=== PATIENT | female | born 1985 | race Caucasian/White ===

== ENCOUNTER 2017-10-03 16:24 | Emergency (ER) ==
[2017-10-03 16:31] VITALS: BP 144/78; TEMP 99.8; BMI 31.4
--- NOTE | 2017-10-03 17:09 | ED.PDOC ---
General ED Provider: Dr. MINERVA CAMACHO Chief Complaint: Fever Stated Complaint: Sinus infection associated with repeated episodes of emesis since last evening when started on antibiotic amoxicilln. Time Seen by Physician: 16:30 Mode of Arrival: Walk-In Information Source: Patient Exam Limitations: No limitations Primary Care Provider: AMY VARGAS Seen Within Last 72 Hours for Same Complaint By: PCP Nursing and Triage Documentation Reviewed and Agree: Yes Reviewed sepsis parameters & appropriate labs ordered?: Yes System Inflammatory Response Syndrome: Not Applicable Sepsis Protocol: For patient's 13 years and over: Temp is 96.8 and below OR 101 and greater Pulse >90 BPM Resp >20/minute Acutely Altered Mental Status Are patient's symptoms suggestive of a new infection, such as: -Pneumonia -Skin, Soft Tissue -Endocarditis -UTI -Bone, Joint Infection -Implantable Device -Acute Abdominal Infection -Wound Infection -Meningitis -Blood Stream Catheter Infection -Unknown System Inflammatory Response Syndrome: Not Applicable Respiratory Complaint Exam - Respiratory Complaint/Exam Symptoms Are: Still present Timing: Intermittent Initial Severity: Moderate Current Severity: Mild Location: Throat Character: Reports: Productive cough Alleviating: Reports: None Associated Signs and Symptoms: Reports: Nasal congestion, Decreased oral intake , Increased thirst Related Surgical History: Reports: None Pulmonary Embolism Risk Factors: None Cardiac Risk Factors: Reports: None Pseudomonas Risk Factors: Reports: None Tuberculosis Risk Factors: Reports: None Status Asthmaticus Risk Factors: Reports: None Home Oxygen Use: Yes Recent Stress Test: No Recent Echo/LV Function: No Current Antibiotic Use: No Current Asthma Medication Use: No Respiratory Distress: None Inadequate Respiratory Effort: No Dysphagia Present: No Stridor Present: No JVD Present: No Accessory Muscle Use: No Retractions: Not Present Diminished Breath Sounds: No Sinus Tenderness: Maxillary Grunting Respirations: No Kussmaul Respirations: No Differential Diagnoses: Sinusitis, Influenza, Other (vomiting) Review of Systems - Review Of Systems Constitutional: Reports: Fever, Weakness Eyes: Reports: No symptoms Ears, Nose, Mouth, Throat: Reports: Nose discharge Respiratory: Reports: Cough Cardiac: Reports: No symptoms GI: Reports: Nausea, Poor appetite, Poor fluid intake, Vomiting : Reports: No symptoms Musculoskeletal: Reports: No symptoms Skin: Reports: No symptoms Neurological: Reports: No symptoms All Other Systems: Reviewed and Negative Past Medical History - Past Medical History Previously Healthy: Yes Endocrine: Reports: None Cardiovascular: Reports: None Respiratory: Reports: None Hematological: Reports: None Gastrointestinal: Reports: None Genitourinary: Reports: None Neuro/Psych: Reports: None Musculoskeletal: Reports: Joint Pain Cancer: Reports: None Last Menstrual Period: 1 month ago - Surgical History General Surgical History: Reports: Cholecystectomy - Family History Family History: Reports: Unknown - Social History Smoking Status: Current every day smoker, Light tobacco smoker Hx Substance Use: No Alcohol Screening: None Physical Exam - Physical Exam Appearance: Well-appearing Ill-appearing: Mild Eyes: [place], EOMI, Conjunctiva clear ENT: Ears normal, Nose normal, Oropharynx normal Neck: Supple Respiratory: Airway patent Cardiovascular: RRR GI/: Soft, Nontender, No masses, Bowel sounds normal, No Organomegaly Musculoskeletal: Normal strength Skin: Warm Neurological: Sensation intact, Alert, Oriented Psychiatric: Affect appropriate, Mood appropriate Critical Care Note - Critical Care Note Total Time (mins): 0 Course - Course Hematology/Chemistry: 10/03/17 17:20 10/03/17 17:20 Orders, Labs, Meds: Lab Review 10/03/17 10/03/17 10/03/17 16:40 17:15 17:15 WBC RBC Hgb Hct MCV MCH MCHC RDW Coeff of Shaggy Plt Count Immature Gran % (Auto) Neut % (Auto) Lymph % (Auto) Angelina % (Auto) Eos % (Auto) Baso % (Auto) Immature Gran # (Auto) Neut # Lymph # Angelina # Eos # Baso # Sodium Potassium Chloride Carbon Dioxide Anion Gap BUN Creatinine Estimated GFR (MDRD) BUN/Creatinine Ratio Glucose Calcium Total Bilirubin AST ALT Alkaline Phosphatase Total Protein Albumin Globulin Albumin/Globulin Ratio Urine Color Yellow Urine Clarity Clear Urine pH 8.5 Ur Specific [place] 1.015 Urine Protein Negative Urine Glucose (UA) Negative Urine Ketones Negative Urine Blood Negative Urine Nitrite Negative Urine Bilirubin Negative Urine Urobilinogen 0.2 Ur Leukocyte Esterase Negative Urine Test Negative Influenza A (Rapid) Negative by naat Influenza B (Rapid) Negative by naat 10/03/17 10/03/17 17:20 17:20 WBC 7.70 RBC 4.27 Hgb 12.3 Hct 36.6 L MCV 85.7 MCH 28.8 MCHC 33.6 RDW Coeff of Shaggy 15.0 H Plt Count 202 Immature Gran % (Auto) 0.3 Neut % (Auto) 48.2 Lymph % (Auto) 37.7 Angelina % (Auto) 8.4 Eos % (Auto) 4.2 Baso % (Auto) 1.2 Immature Gran # (Auto) 0.0 Neut # 3.7 Lymph # 2.9 Angelina # 0.7 Eos # 0.3 Baso # 0.1 Sodium 141 Potassium 3.8 Chloride 110 H Carbon Dioxide 25 Anion Gap 9.8 BUN 7 Creatinine 0.71 Estimated GFR (MDRD) 96.00 BUN/Creatinine Ratio 9.85 Glucose 83 Calcium 9.0 Total Bilirubin 0.3 AST 15 ALT 9 L Alkaline Phosphatase 55 Total Protein 6.5 Albumin 3.5 Globulin 3.0 Albumin/Globulin Ratio 1.17 Urine Color Urine Clarity Urine pH Ur Specific [place] Urine Protein Urine Glucose (UA) Urine Ketones Urine Blood Urine Nitrite Urine Bilirubin Urine Urobilinogen Ur Leukocyte Esterase Urine Test Influenza A (Rapid) Influenza B (Rapid) Orders Category Date Time Status CLEAR LIQUID DIET DIETARY 10/03/17 Dinner Ordered CBC W/ AUTO DIFF Stat LAB 10/03/17 17:20 Completed CMP [COMPREHENSIVE METABOLIC PANEL] Stat LAB 10/03/17 17:20 Completed FLU A & B MOLECULAR [FLU A/B MOLECULAR] Stat LAB 10/03/17 16:40 Completed MOLECULAR GROUP A STREP Stat LAB 10/03/17 16:40 Completed URINALYSIS C & S IF INDICATED Stat LAB 10/03/17 17:15 Completed URINE Stat LAB 10/03/17 17:15 Completed Vital Signs: Temp Pulse Resp BP Pulse Ox 10/03/17 16:25 99.8 F H 76 16 144/78 H 97 Departure - Departure Discharge Problem: Sinusitis, Emesis Instructions: Sinusitis (ED), Acute Nausea and Vomiting (ED) Condition: Good Pt referred to PMD for follow-up: Yes (1 week) Prescriptions: Ondansetron [Zofran Odt] 4 mg PO Q8H #7 tab.rapdis Allergies/Adverse Reactions: Allergies No Known Drug Allergies Adverse Reaction (Verified 10/03/17 16:32) Home Medications: Ambulatory Orders Amoxicillin 500 mg PO TID 10/03/17 Ondansetron [Zofran Odt] 4 mg PO Q8H #7 tab.rapdis 10/03/17 Disposition Discussed With: Patient, Family
[2017-10-03] MEDS ORDERED: TYLENOL PO STA (18:40)
== END 2017-10-03 19:05 | disposition home or self-care (01) ==
LOC: ED 16:24
DX: J32.9 Chronic sinusitis, unspecified (principal); R11.10 Vomiting, unspecified; F17.210 Nicotine dependence, cigarettes, uncomplicated
CPT/HCPCS: 36415; 80053; 81001; 81025; 85025; 87502; 87651; 99283

== ENCOUNTER 2018-10-30 13:31 | Emergency (ER) | payer OTHER ==
[2018-10-30 13:41] VITALS: BP 140/81; TEMP 98.2; BMI 30.4
--- NOTE | 2018-10-30 15:57 | ED.PDOC ---
General ED Provider: Dr. MINERVA CAMACHO Chief Complaint: Rash Stated Complaint: Rash. Itchy red spots to left thigh x 4 or 5 days. Sawe ELIERD, Amy Vargas yesterday. Giventriacinolone cream et Prednisone 20 mg po dly. States is not working yet. States triamcinolone cream [place] and makes the rash worse. Has not informed Amy Vargas. Time Seen by Physician: 15:45 Mode of Arrival: Walk-In Information Source: Patient Exam Limitations: No limitations Primary Care Provider: AMY VARGAS Nursing and Triage Documentation Reviewed and Agree: Yes Does patient meet sepsis criteria?: No System Inflammatory Response Syndrome: Not Applicable Sepsis Protocol: For patient's 13 years and over: Temp is 96.8 and below OR 101 and greater Pulse >90 BPM Resp >20/minute Acutely Altered Mental Status Are patient's symptoms suggestive of a new infection, such as: -Pneumonia -Skin, Soft Tissue -Endocarditis -UTI -Bone, Joint Infection -Implantable Device -Acute Abdominal Infection -Wound Infection -Meningitis -Blood Stream Catheter Infection -Unknown Skin Complaint Exam - Skin Rash/Itching Complaint/Exam Symptoms Are: Still present Initial Severity: Moderate Current Severity: Severe Location: lt thigh and knee Potential Exposures: Reports: Unknown Prior Treatment: Benadryl , cream and steroids Aggravating: Reports: Showering, Heat, Clothing Alleviating: Reports: None Associated Signs and Symptoms: Denies: Difficulty breathing, Fever, Chills Related History: Similar episode Skin Findings: Present: Purpura (from itching in multiple locations lt lat thigh , scaling lesion, superficial vascular sites) Differential Diagnoses: Allergic Reaction, Other (neurodermatitis) Review of Systems - Review Of Systems Constitutional: Reports: No symptoms Eyes: Reports: No symptoms Ears, Nose, Mouth, Throat: Reports: No symptoms Respiratory: Reports: No symptoms Cardiac: Reports: No symptoms GI: Reports: No symptoms : Reports: No symptoms Musculoskeletal: Reports: No symptoms Skin: Reports: Rash (minimal lt thigh and popiteal region ), Other (itching) Neurological: Reports: Anxiety. Denies: Emotional problems, Cognitive dysfunction, Numbness, Tonic-Clonic seizures, Unable to move lower ext Endocrine: Reports: No symptoms Hematologic/Lymphatic: Reports: No symptoms All Other Systems: Reviewed and Negative Past Medical History - Past Medical History Previously Healthy: Yes Endocrine: Reports: None Cardiovascular: Reports: None Respiratory: Reports: None Hematological: Reports: None Gastrointestinal: Reports: None Genitourinary: Reports: None Neuro/Psych: Reports: None Musculoskeletal: Reports: Joint Pain Cancer: Reports: None Last Menstrual Period: 10/20/18 - Surgical History General Surgical History: Reports: Cholecystectomy - Family History Family History: Reports: Unknown - Social History Smoking Status: Current some day smoker, Light tobacco smoker Hx Substance Use: No Alcohol Screening: Occasionally Physical Exam - Physical Exam Appearance: Well-appearing (but anxious in appearance) Ill-appearing: None Pain Distress: None Eyes: [place], EOMI, Conjunctiva clear ENT: Ears normal, Nose normal, Oropharynx normal Neck: Supple Respiratory: Airway patent, Breath sounds clear, Breath sounds equal, Respirations nonlabored Cardiovascular: RRR, Pulses normal, No rub, No murmur GI/: Soft, Nontender, No masses, Bowel sounds normal, No Organomegaly Musculoskeletal: Normal strength, ROM intact, No edema, No calf tenderness Skin: Warm, Dry, Normal color Neurological: Sensation intact, Motor intact, Reflexes intact, Cranial nerves intact, Alert, Oriented Psychiatric: Affect appropriate, Mood appropriate Re-Evaluation - Re-Evaluation Time of Re-Evaluation: 17:50 Status: Improved Vital Signs Stable: Yes Appearance: NAD Lungs: Clear Skin: Warm and Dry Neuro: Alert and Oriented X3 CV: RRR Additional Comments: Feels much better Critical Care Note - Critical Care Note Total Time (mins): 30 Course - Course Hematology/Chemistry: 10/30/18 16:23 10/30/18 16:23 Orders, Labs, Meds: Lab Review 10/30/18 10/30/18 16:23 16:23 WBC 12.75 H RBC 4.58 Hgb 13.1 Hct 40.0 MCV 87.3 MCH 28.6 MCHC 32.8 RDW Coeff of Shaggy 14.2 Plt Count 259 Immature Gran % (Auto) 0.2 Neut % (Auto) 80.1 Lymph % (Auto) 16.0 [place] % (Auto) 3.5 Eos % (Auto) 0.0 Baso % (Auto) 0.2 Immature Gran # (Auto) 0.0 Neut # (Auto) 10.2 H Lymph # (Auto) 2.0 [place] # (Auto) 0.5 Eos # (Auto) 0.0 Baso # (Auto) 0.0 ESR 7 Sodium 139.0 Potassium 4.35 Chloride 102.1 Carbon Dioxide 27.0 Anion Gap 14.25 BUN 10.2 Creatinine 0.57 L Estimated GFR (MDRD) 123.00 BUN/Creatinine Ratio 17.89 Glucose 123.8 H Calcium 9.63 Total Bilirubin 0.39 AST 20.3 ALT 15.0 Alkaline Phosphatase 62.9 Total Protein 7.93 Albumin 4.71 Globulin 3.22 Albumin/Globulin Ratio 1.46 Orders Category Date Time Status CBC W/ AUTO DIFF Stat LAB 10/30/18 16:23 Completed CMP [COMPREHENSIVE METABOLIC PANEL] Stat LAB 10/30/18 16:23 Completed ESR Stat LAB 10/30/18 16:23 Completed UA [URINALYSIS C & S IF INDICATED] Stat LAB 10/30/18 16:14 Uncollected Cyproheptadine HCl [Periactin] MEDS 10/30/18 16:10 Discontinued 4 mg PO ONCE STA Hydroxyzine HCl [Vistaril Inj] MEDS 10/30/18 16:09 Discontinued 25 mg IM ONCE STA Medications Discontinued Medications Generic Name Dose Route Start Last Admin Trade Name Robert PRN Reason Stop Dose Admin Cyproheptadine HCl 4 mg 10/30/18 16:10 10/30/18 16:24 Periactin PO 10/30/18 16:11 Not Given ONCE STA Hydroxyzine HCl 25 mg 10/30/18 16:09 10/30/18 16:24 Vistaril Inj IM 10/30/18 16:10 25 mg ONCE STA Administration Vital Signs: Temp Pulse Resp BP Pulse Ox 10/30/18 13:32 98.2 F 87 20 140/81 98 Departure - Departure Time of Disposition: 17:20 Disposition: HOME SELF-CARE Discharge Problem: Pruritic condition, Stress at work Instructions: Itchy Skin (ED) Condition: Good Pt referred to PMD for follow-up: Yes IPMP verified?: No Additional Instructions: Cool baths wash clothing in hypoallergenic solution(dreft) Take meds as directed Prescriptions: Hydroxyzine HCl [Atarax] 25 mg PO QID #20 tablet Allergies/Adverse Reactions: Allergies No Known Drug Allergies Adverse Reaction (Verified 10/30/18 13:40) Home Medications: Ambulatory Orders Hydroxyzine HCl [Atarax] 25 mg PO QID #20 tablet 10/30/18 Disposition Discussed With: Patient, Family
[2018-10-30] MEDS: PERIACTIN PO STA (16:24)
[2018-10-30] MEDS: VISTARIL INJ IM STA (16:24)
== END 2018-10-30 18:12 | disposition home or self-care (01) ==
LOC: ED 13:31
DX: R21 Rash and other nonspecific skin eruption (principal); L29.9 Pruritus, unspecified; F43.9 Reaction to severe stress, unspecified; F17.210 Nicotine dependence, cigarettes, uncomplicated
CPT/HCPCS: 36415; 80053; 85025; 85651; 96372; 99282

== ENCOUNTER 2019-05-01 22:39 | Emergency (ER) ==
[2019-05-01 22:47] VITALS: BP 139/79; TEMP 99.3; BMI 30.5
--- NOTE | 2019-05-02 00:06 | DI ---
EXAM: Three-view right foot. HISTORY: Fall. FINDINGS: The bones are intact with no evidence of fracture. The joint spaces are maintained. There is soft tissue swelling in the forefoot. Impression: No evidence of fracture. Soft tissue swelling as described.
--- NOTE | 2019-05-02 00:07 | DI ---
EXAM: Three-view right ankle. HISTORY: Fall. FINDINGS: The bones are intact with no evidence of fracture. The joint spaces are maintained. No so ft tissue abnormality. Impression: Negative right ankle.
[2019-05-02] MEDS ORDERED: MOTRIN PO STA (00:09)
--- NOTE | 2019-05-02 00:12 | ED.PDOC ---
General ED Provider: Dr. MINERVA MCCLELLNAD-ER Chief Complaint: Foot Pain/Injury Stated Complaint: i hurt my foot Time Seen by Physician: 22:40 Mode of Arrival: Wheelchair Information Source: Patient, Family Exam Limitations: No limitations Primary Care Provider: AMY VARGAS Nursing and Triage Documentation Reviewed and Agree: Yes Does patient meet sepsis criteria?: No System Inflammatory Response Syndrome: Not Applicable Sepsis Protocol: For patient's 13 years and over: Temp is 96.8 and below OR 101 and greater Pulse >90 BPM Resp >20/minute Acutely Altered Mental Status Are patient's symptoms suggestive of a new infection, such as: -Pneumonia -Skin, Soft Tissue -Endocarditis -UTI -Bone, Joint Infection -Implantable Device -Acute Abdominal Infection -Wound Infection -Meningitis -Blood Stream Catheter Infection -Unknown Musculoskeletal Complaint Exam - Ankle/Foot Complaint/Exam Location of Injury: Reports: Right, Foot Mechanism of Injury: Reports: Trauma Onset/Duration: today Symptoms Are: Reports: Still present Onset of Pain: Reports: Immediate Initial Severity: Mild Current Severity: Mild Location: Reports: Discrete Character: Reports: Dull, Aching, Spasmodic Aggravating: Reports: Movement, Weight bearing, Prolonged standing Able to Bear Weight: No Associated Signs and Symptoms: Reports: Swelling Lower Extremity Findings: Present: Swelling, Tenderness, Limited range of motion Achilles Tendon Abnormality: No Tenderness: Present: Midfoot, Metatarsals Differential Diagnosis: Contusion, Closed Fracture, Sprain, Strain Review of Systems - Review Of Systems Constitutional: Reports: No symptoms Eyes: Reports: No symptoms Ears, Nose, Mouth, Throat: Reports: No symptoms Respiratory: Reports: No symptoms Cardiac: Reports: No symptoms GI: Reports: No symptoms : Reports: No symptoms Musculoskeletal: Reports: Joint pain, Muscle pain Skin: Reports: No symptoms Neurological: Reports: No symptoms Endocrine: Reports: No symptoms Hematologic/Lymphatic: Reports: No symptoms All Other Systems: Reviewed and Negative Past Medical History - Past Medical History Previously Healthy: Yes Endocrine: Reports: None Cardiovascular: Reports: None Respiratory: Reports: None Hematological: Reports: None Gastrointestinal: Reports: None Genitourinary: Reports: None Neuro/Psych: Reports: None Musculoskeletal: Reports: Joint Pain Cancer: Reports: None Last Menstrual Period: 2 weeks ago - Surgical History General Surgical History: Reports: Cholecystectomy - Family History Family History: Reports: Unknown - Social History Smoking Status: Current some day smoker, Light tobacco smoker Hx Substance Use: No Alcohol Screening: Occasionally - Immunizations Tetanus Shot up to Date: Yes Physical Exam - Physical Exam Appearance: Well-appearing, No pain distress, Well-nourished Pain Distress: Mild Eyes: [place], EOMI, Conjunctiva clear ENT: Ears normal, Nose normal, Oropharynx normal Neck: Supple Respiratory: Airway patent, Breath sounds clear, Breath sounds equal, Respirations nonlabored Cardiovascular: RRR GI/: Soft, Nontender, No masses, Bowel sounds normal, No Organomegaly Musculoskeletal: Normal strength, ROM intact, No edema, No calf tenderness Skin: Warm, Dry, Normal color Neurological: Sensation intact, Motor intact, Reflexes intact, Cranial nerves intact, Alert, Oriented Psychiatric: Affect appropriate, Mood appropriate Interpretation - Radiology Interpretation Radiology Interpretation By: Radiologist Radiology Results: Negative Critical Care Note - Critical Care Note Total Time (mins): 0 Course - Course Orders, Labs, Meds: Orders Category Date Time Status CRUTCHES [ED CRUTCHES] .ONCE EMERGENCY 05/02/19 00:09 Active ED INES WRAP .ONCE EMERGENCY 05/02/19 00:09 Active Ice Pack [ED APPLY ICE AFFECTED AREA] .ONCE EMERGENCY 05/01/19 22:45 Active Ibuprofen [Motrin] MEDS 05/02/19 00:09 Stat 600 mg PO ONCE STA ANKLE, RIGHT MIN 3 VIEWS Stat RADS 05/01/19 22:45 Completed FOOT, RIGHT 3 VIEWS Stat RADS 05/01/19 22:45 Completed Medications Generic Name Dose Route Start Last Admin Trade Name Freq PRN Reason Stop Dose Admin Ibuprofen 600 mg 05/02/19 00:09 Motrin PO 05/02/19 00:10 ONCE STA Vital Signs: Temp Pulse Resp BP Pulse Ox 05/01/19 22:39 99.3 F 86 20 139/79 97 Departure - Departure Time of Disposition: 00:12 Disposition: HOME SELF-CARE Discharge Problem: Injury of foot Instructions: Foot Contusion (ED) Condition: Good Pt referred to PMD for follow-up: Yes IPMP verified?: No Additional Instructions: ice, elevate foot---use crutches for ambulation--f/u with pcp Allergies/Adverse Reactions: Allergies No Known Drug Allergies Adverse Reaction (Verified 05/01/19 22:46) Home Medications: Ambulatory Orders 1 [No Reported Medications] 05/01/19 Disposition Discussed With: Patient, Family
== END 2019-05-02 00:25 | disposition home or self-care (01) ==
LOC: ED 22:39
DX: S99.921A Unspecified injury of right foot, initial encounter (principal); F17.210 Nicotine dependence, cigarettes, uncomplicated
CPT/HCPCS: 99283